=== PATIENT | male | born 1970 | race Caucasian/White ===

== ENCOUNTER 2016-12-03 01:00 | Inpatient (IN) | payer MEDICAID, OTHER ==
[~2016-12-03] VITALS: Ht 172.7 cm; Wt 76.2 kg
[2016-12-03] VITALS (10 sets, daily range): BP systolic 83–145; BP diastolic 52–76; PULSE 74–90; RESP 16–20; TEMP 97.7–99.1; O2SAT 92–98
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
[2016-12-03 01:38] LABS: AUTOMATED NEUTROPHIL # 7.9 TH/MM3 (1.8-7.7); BASOPHIL # 0.1 TH/MM3 (0-0.2); BASOPHIL % 0.8 % (0.0-2.0); EOSINOPHIL # 0.5 TH/MM3 (0-0.4); EOSINOPHIL % 4.5 % (0.0-4.0); HEMATOCRIT 46.1 % (39.0-51.0); HEMO FLAGS DIFF FINAL; LYMPH % 9.9 % (9.0-44.0); MEAN CELL VOLUME 99.8 FL (80.0-100.0); MEAN CORPUSCULAR HEMOGLOBIN 34.4 PG (27.0-34.0); MEAN CORPUSCULAR HGB CONC 34.5 % (32.0-36.0); MONO % 10.4 % (0.0-8.0); NEUT % 74.4 % (16.0-70.0); PLATELET COUNT 242 TH/MM3 (150-450); RED BLOOD COUNT 4.62 MIL/MM3 (4.50-5.90); WHITE BLOOD COUNT 10.6 TH/MM3 (4.0-11.0)
[2016-12-03 01:53] LABS: BICARBONATE 25.3 MEQ/L (21.0-32.0); POTASSIUM 3.3 MEQ/L (3.5-5.1)
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
[2016-12-03] MEDS ORDERED: NALOXONE HCL 0.4 MG/ML AMP IV PRN (03:00)
[2016-12-03] MEDS: HYDROmorphone HCL PF 1 MG/ML VIAL IV PUSH PRN ×2 (03:10→08:12)
[2016-12-03 05:38] LABS: BLOOD, URINE NEG (NEG); COMMENT (UR) CULT NOT INDICATED; CULTURE IF INDICATED CULT NOT INDICATED; GLUCOSE,URINE NEG (NEG); HYALINE CAST, URINE 1 /lpf (RARE); KETONE, URINE NEG (NEG); MUCUS URINE FEW /lpf (OCC); NITRITE,URINE NEG (NEG); PH, URINE 5.5 (5.0-8.5); URINE COLOR LIGHT-YELLOW (YELLW/STRAW)
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
[2016-12-03] MEDS: SODIUM CHLORIDE 0.9% FLUSH 10 ML FLUSH IV FLUSH SCH ×2 (09:16→21:54)
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
[2016-12-03] MEDS ORDERED: ACETAMINOPHEN/HYDROcodone 325 MG/7.5 MG TAB PO PRN (11:15)
[2016-12-03] MEDS ORDERED: LORazepam 2 MG/ML VIAL IV PUSH PRN ×4 (11:15)
[2016-12-03] MEDS ORDERED: THIAMINE HCL 100 MG TAB PO ONE (11:15)
[2016-12-03] MEDS ORDERED: LORazepam 2 MG TAB PO PRN (11:15)
[2016-12-03] MEDS ORDERED: LORazepam 1 MG TAB PO PRN (11:15)
[2016-12-03] MEDS ORDERED: FLUMAZENIL 0.5 MG/5 ML VIAL IV PUSH PRN (11:15)
[2016-12-03] MEDS ORDERED: DOCUSATE SODIUM 50 MG/SENNA 8.6 MG TAB PO PRN (11:15)
[2016-12-03] MEDS ORDERED: MAGNESIUM HYDROXIDE SUSP 30 ML CUP PO PRN (11:15)
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
[2016-12-03] MEDS: FOLIC ACID 1 MG TAB PO SCH (11:29)
[2016-12-03] MEDS: MULTIVITAMIN TAB PO SCH (11:29)
[2016-12-03] MEDS ORDERED: cloNIDine HCL 0.1 MG TAB PO PRN (11:30)
[2016-12-03] MEDS ORDERED: POTASSIUM CHLORIDE 20 MEQ CONTROLLED RELEASE TAB PO ONE (11:30)
[2016-12-03] MEDS: ACETAMINOPHEN/HYDROcodone 325 MG/10 MG TAB PO PRN ×2 (11:34→17:39)
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
[2016-12-03] MEDS: NICOTINE 21 MG/24 HR PATCH T-DERMAL SCH (12:57)
[2016-12-03] MEDS: KETOROLAC TROMETHAMINE 60 MG/2 ML (IM) VIAL IM SCH ×2 (12:58→17:41)
[2016-12-03] MEDS: REMOVE OLD PATCH T-DERMAL SCH (21:54)
[2016-12-04] VITALS (7 sets, daily range): BP systolic 100–138; BP diastolic 61–84; PULSE 75–108; RESP 16–18; TEMP 96.5–99.1; O2SAT 91–97
[2016-12-04] MEDS: ACETAMINOPHEN/HYDROcodone 325 MG/10 MG TAB PO PRN ×5 (01:02→22:49)
[2016-12-04] MEDS: KETOROLAC TROMETHAMINE 60 MG/2 ML (IM) VIAL IM SCH (01:03)
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
[2016-12-04] MEDS ORDERED: METOPROLOL TARTRATE 25 MG TAB PO PRN (07:00)
[2016-12-04] MEDS ORDERED: LACTATED RINGER'S 1000 ML IV PRN (07:00)
[2016-12-04] MEDS ORDERED: SODIUM CHLORID 0.9% 500 ML IV PRN (07:00)
[2016-12-04] MEDS ORDERED: POVIDONE IODINE 5% (ANTISEPSIS KIT) 4 APPLICATIONS EACH NARE PRN (07:00)
[2016-12-04] MEDS ORDERED: INSULIN HUMAN REGULAR 1,000 UNITS/10 ML VIAL SQ PRN (07:00)
[2016-12-04] MEDS ORDERED: CHLORHEXIDINE GLUCONATE 2 % 1 PACK (2 CLOTHS) TOPICAL PRN (07:00)
[2016-12-04] MEDS ORDERED: ceFAZolin 2 GM PREMIX 0 ML ONE (07:37)
[2016-12-04] MEDS ORDERED: VANCOMYCIN HCL 1000 MG VIAL ONE (07:37)
[2016-12-04] MEDS ORDERED: GENTAMICIN SULFATE 80 MG/2 ML VIAL ONE (07:37)
[2016-12-04] MEDS ORDERED: RESP: ALBUTEROL 2.5 MG/3 ML NEB (PRN) ONE (07:52)
[2016-12-04] MEDS: POLYETHYLENE GLYCOL 17 GM PKG PO SCH (09:00)
[2016-12-04] MEDS: MULTIVITAMIN TAB PO SCH (09:00)
[2016-12-04] MEDS: FOLIC ACID 1 MG TAB PO SCH (09:00)
[2016-12-04] MEDS: THIAMINE HCL 100 MG TAB PO SCH (09:00)
[2016-12-04] MEDS: SODIUM CHLORIDE 0.9% FLUSH 10 ML FLUSH IV FLUSH SCH ×2 (09:00→21:01)
[2016-12-04] MEDS: NICOTINE 21 MG/24 HR PATCH T-DERMAL SCH (09:00)
[2016-12-04] MEDS ORDERED: ceFAZolin INJ 1,000 MG VIAL ONE (09:08)
[2016-12-04] MEDS ORDERED: Post-op Orders (for Pharmacy) MISC XX ONE (11:45)
[2016-12-04] MEDS ORDERED: MISCELLANEOUS NURSING INFORMATION XX PRN (11:45)
[2016-12-04] MEDS ORDERED: SODIUM CHLORIDE 0.9% FLUSH 5 ML FLUSH IVF PRN (11:45)
--- NOTE | 2016-12-04 11:50 | PD.OP ---
cc: Jae Jade MD Operative Report Date of Surgery: Dec 04, 2016 Preoperative Diagnosis: Comminuted right bicondylar tibial plateau fracture Postoperative Diagnosis: Procedure: Open reduction internal fixation comminuted bicondylar tibial plateau fracture Anesthesia: Gen. Surgeon: Jae Jade Dietetic Tech(s): SAVAGE Banda PA-C The surgical procedure was assisted by my physician assistant case manager. My P.A. presence was necessary throughout this case for the manipulation and positioning of the surgical extremity. My P.A. was assisting me throughout the duration of this procedure. The skill set of a physician assistant case manager was medically necessary to complete this procedure. During the surgical case the surgical dental assistant was working at the back table and the physician assistant case manager was directly assisting me. Operation and Findings: This patient was seen and evaluated preoperatively. Patient sustained an injury resulting a bicondylar right tibial plateau fracture. Informed consent was obtained preoperatively after detailed discussion of the risks and benefits of surgery. Risk of surgery including bleeding, infection, nonunion, painful hardware, stiffness, loss of motion, arthritis, need for knee replacement, as well as medical complications including blood clots, stroke, heart attack, and were discussed. I also discussed the possibility of using allograft bone graft . Preoperatively the operative site was marked. Patient was brought to the operating room and placed on the operating room table. Intravenous sedation and general endotracheal anesthesia were administered. IV antibiotics were given and a time out procedure was preformed. Next,the operative leg was prepped with alcohol followed by Hibiclens and draped in the usual sterile fashion. Attention was now turned towards the medial tibial plateau. A 6 inch incision was made over the posterior medial aspect of the tibial plateau. Saphenous vein was protected. The PES insertion was elevated to expose the posterior medial tibial plateau. Fracture was visualized. Attention was now turned toward reduction. Traction was applied. Fracture was manipulated. Fracture keyed in excellent alignment. A fracture tenaculum was used to compress fracture. K wires were used for provisional fixation. Fluoroscopy confirmed excellent alignment of fracture. Two 3.5 cortical lag screws were placed from anterior to posterior. Good compression was obtained. A Synthes plate was now placed along the posterior medial tibial plateau. Plate was provisionally held to bone with K wires. Fluoroscopy confirmed plate placement. 3.5 cortical screws were used to compress plate to bone. Additional locking screws were placed proximally. Next a 4-inch curvilinear incision over the anterolateral knee. Subcutaneous tissue was treated with Bovie. Iliotibial band was split in line with fibers. A sub-meniscal arthrotomy was created and the lateral articular surface was visualized. There was significant comminution and depression of the articular surface. A window was made in the metaphyseal region and bone tamps used to elevate the articular surface. The weightbearing aspect of the Articular surface reduced into excellent alignment. There was a fragment defect along the intercondylar notch that would not reduce anatomically. K-wires were used for provisional fixation. At this point cancellous bone graft was packed under the articular surface using a bone tamp. The cortical fragments were now reduced. Fluoroscopy revealed excellent alignment of fracture. A Synthes proximal tibial plate was selected. The plate was provisionally held with K- wires. 3.5 cortical screws were used compress plate to bone distally, and a periarticular clamp was used to compress the medial and lateral tibial plateau fracture fragments together. Multiple locking screws were now placed proximally. Additional screws were placed in the shaft. K-wires were removed. Final fluoroscopy showed excellent alignment of fracture with well- placed hardware. The incision was thoroughly irrigated. Attention was now returned back to the medial plate. Additional locking screws were placed proximally within the plate. All screws were predrilled and premeasured for appropriate length. Incisions were thoroughly irrigated. Attention was now turned to closure. Fascia and iliotibial band were closed with #1 Vicryl,. Subcutaneous tissues closed with 3-0 Vicryl and skin was closed with verónica. Sterile dressings were applied. The patient was transferred to recovery in stable condition. Jae Jade MD Dec 04, 2016 11:50
[2016-12-04] MEDS ORDERED: DO NOT ADM ANY ANTICOAGULANT DRUGS PRN (12:14)
[2016-12-04] MEDS ORDERED: *morphine SULFATE 8 MG/ML PERIprocedure ONLY ONE ×2 (12:21→12:38)
[2016-12-04] MEDS ORDERED: *MEPERIDINE 25 MG INJ VIAL PERIprocedural Use ONLY ONE (12:25)
[2016-12-04] MEDS: LACTATED RINGER'S 1000 ML INJ 1,000 ML IV SCH (12:50)
[2016-12-04] MEDS ORDERED: MIDAZOLAM HCL 2 MG/2 ML VIAL IV ONE (12:53)
[2016-12-04] MEDS ORDERED: LACTATED RINGER'S 1000 ML INJ 1,000 ML IV ONE (12:53)
[2016-12-04] MEDS ORDERED: PHENYLEPH/NS 1000 MCG/10 ML SYR IV ONE (12:53)
[2016-12-04] MEDS ORDERED: PROPOFOL 200 MG/20 ML AMP IV ONE (12:53)
[2016-12-04] MEDS: CALCIUM/VITAMIN D 250 MG/125 U TAB PO SCH ×2 (13:00→19:11)
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
[2016-12-04] MEDS ORDERED: diphenhydrAMINE HCL 25 MG CAP PO PRN (14:00)
[2016-12-04] MEDS ORDERED: ERGOCALCIFEROL (VIT D2) 50,000 UNIT CAP PO SCH (14:00)
[2016-12-04] MEDS ORDERED: ONDANSETRON HCL 4 MG/2 ML VIAL IVP PRN (14:00)
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
[2016-12-04 16:35] LABS: BASOPHIL % 0.4 % (0.0-2.0); EOSINOPHIL # 0.2 TH/MM3 (0-0.4); EOSINOPHIL % 2.9 % (0.0-4.0); HEMATOCRIT 39.6 % (39.0-51.0); HEMO FLAGS DIFF FINAL; LYMPH % 8.4 % (9.0-44.0); LYMPHOCYTE # 0.7 TH/MM3 (1.0-4.8); MEAN CELL VOLUME 99.3 FL (80.0-100.0); MEAN CORPUSCULAR HEMOGLOBIN 33.7 PG (27.0-34.0); MEAN CORPUSCULAR HGB CONC 33.9 % (32.0-36.0); MONO % 11.7 % (0.0-8.0); NEUT % 76.6 % (16.0-70.0); PLATELET COUNT 248 TH/MM3 (150-450); RED BLOOD COUNT 3.99 MIL/MM3 (4.50-5.90); RED CELL DISTRIBUTION WIDTH 14.2 % (11.6-17.2); WHITE BLOOD COUNT 7.8 TH/MM3 (4.0-11.0)
[2016-12-04 16:50] LABS: BICARBONATE 28.6 MEQ/L (21.0-32.0); POTASSIUM 4.2 MEQ/L (3.5-5.1)
[2016-12-04] MEDS: ceFAZolin 2 GM PREMIX 50 ML IV SCH (19:11)
[2016-12-04] MEDS: HYDROmorphone HCL PF 1 MG/ML VIAL IV PUSH PRN (21:00)
[2016-12-04] MEDS: SODIUM CHLORIDE 0.9% FLUSH 5 ML FLUSH IVF SCH (21:01)
[2016-12-04] MEDS: VANCOMYCIN INJ 1,000 MG in SODIUM CHLOR 0.9% 250 ML INJ 250 ML IV SCH (21:01)
[2016-12-04] MEDS: REMOVE OLD PATCH T-DERMAL SCH (21:01)
[2016-12-05] VITALS (7 sets, daily range): BP systolic 118–157; BP diastolic 67–81; PULSE 87–92; RESP 18; TEMP 99.2–100.4; O2SAT 92–93
[2016-12-05] MEDS: HYDROmorphone HCL PF 1 MG/ML VIAL IV PUSH PRN ×5 (01:17→23:20)
[2016-12-05] MEDS: ceFAZolin 2 GM PREMIX 50 ML IV SCH ×3 (01:17→17:56)
[2016-12-05] MEDS: LACTATED RINGER'S 1000 ML INJ 1,000 ML IV SCH ×2 (02:30→15:00)
[2016-12-05] MEDS: ACETAMINOPHEN/HYDROcodone 325 MG/10 MG TAB PO PRN ×6 (03:07→21:45)
--- NOTE | 2016-12-05 06:43 | PD.ORT.PN ---
Subjective Subjective Remarks POD 1 s/p ORIF right tibial plateau doing well. reports pain. otherwise stable Objective Vitals Vital Signs Date Time Temp Pulse Resp B/P (MAP) Pulse Ox O2 Delivery O2 Flow Rate FiO2 12/05/16 03:29 99.2 89 18 138/81 (100) 92 12/04/16 23:18 98.8 79 18 124/79 (94) 94 12/04/16 21:08 93 Nasal Cannula 3.00 12/04/16 19:46 98.7 84 18 114/79 (91) 97 12/04/16 18:40 Nasal Cannula 3.00 12/04/16 15:35 96.5 108 17 138/84 (102) 93 12/04/16 12:26 15 12/04/16 12:15 97.8 84 16 119/72 (88) 94 Nasal Cannula 3 12/04/16 07:58 97.6 79 16 108/67 (81) 91 I/O 12/04/16 12/04/16 12/04/16 12/05/16 12/05/16 12/05/16 07:00 15:00 23:00 07:00 15:00 23:00 Intake Total 240 ml 2300 ml 360 ml 360 ml Output Total 250 ml 100 ml 550 ml Balance -10 ml 2200 ml 360 ml -190 ml Intake Oral 240 ml 300 ml 360 ml 360 ml Other 2000 ml Output Urine Total 250 ml 550 ml Estimated Blood Loss 100 ml # Voids 2 # Bowel Movements 0 0 0 Result Diagram: 12/04/16 1545 12/04/16 1545 Imaging Last 24 hours Impressions Knee X-Ray 12/03/16111 Signed Impressions: Service Date/Time: Saturday, December 03, 2016 01:30 - CONCLUSION: 1. Mildly comminuted tibial plateau fracture with mild displacement. Ralph Mendez MD Head CT 12/03/16111 Signed Impressions: Service Date/Time: Saturday, December 03, 2016 01:40 - CONCLUSION: 1. No acute intracranial abnormalities. Mucosal thickening left maxillary sinus. Left frontal sinus osteoma. Ralph Mendez MD Femur X-Ray 12/03/16111 Signed Impressions: Service Date/Time: Saturday, December 03, 2016 01:28 - CONCLUSION: 1. No acute fracture dislocation of the right femur. There is a right tibial plateau fracture which is mildly comminuted. Ralph Mendez MD Chest X-Ray 12/03/16111 Signed Impressions: Service Date/Time: Saturday, December 03, 2016 01:33 - CONCLUSION: 1. No active disease. Remote right ninth rib fracture. Ralph Mendez MD Cervical Spine CT 12/03/16111 Signed Impressions: Service Date/Time: Saturday, December 03, 2016 01:40 - CONCLUSION: 1. No acute findings. Llsm-rs-xwcuerzh degenerative disc disease. Ralph Mendez MD Pelvis X-Ray 12/03/16 0000 Signed Impressions: Service Date/Time: Saturday, December 03, 2016 01:27 - CONCLUSION: 1. No acute findings. Ralph Mendez MD Lower Extremity CT 12/03/16 Signed Impressions: Service Date/Time: Saturday, December 03, 2016 06:29 - CONCLUSION: Severely comminuted plateau fracture as described above. Fracture begins in the posterior lip of the tibia extends only across to the lateral side involving both the medial and lateral tibial spines. Dionte Sutton MD FACR Objective Remarks RLE: +CKS. NVI. neg hayley, compartments soft. dressings clean and dry. intact. Assessment & Plan Assessment and Plan 1) Right Tibial Plateau Fx s/p ORIF - POD 1 -NWB -daily dressing changes POD 2 -PT to work on PROM 0-90 -no quad sets, leg lifts, or active motion -DVT prophylaxis with Lovenox. DC with xarelto -Pain control -work for discharge home -f/u with Jose or JULIA in 2 weeks Isaac Pablo Dec 05, 2016 06:43
[2016-12-05] MEDS ORDERED: WALKER/ADULT/FO1 MIS (06:44)
[2016-12-05] MEDS ORDERED: HYDR-3583 PO (06:44)
[2016-12-05] MEDS ORDERED: XARE10TA PO (06:44)
--- NOTE | 2016-12-05 06:45 | HHI.FF ---
Face to Face Verification Diagnosis: (1) Tibial plateau fracture, right Physical Therapy Gait training Knee: Knee fracture, Protocol: Right, Non weight bearing Canvas Knee Splint: Remove only with PT Right LE Weight Bearing: Non WB, No Strengthening, No Quad Sets Right LE Range of Motion: Passive ROM (0-90deg) Nursing Dressing Changes: Daily dressing change, Pete wrap, 4x4s, Xeroform I have seen patient Mario Oneal on 12/05/16. My clinical findings support the need for the requested home health care services because: Ltd mobility - disease progression I certify that my clinical findings support that this patient is homebound because: Post-op weakness Isaac Pablo Dec 05, 2016 06:45
[2016-12-05 07:05] LABS: AUTOMATED NEUTROPHIL # 5.9 TH/MM3 (1.8-7.7); BASOPHIL % 0.5 % (0.0-2.0); BICARBONATE 29.4 MEQ/L (21.0-32.0); EOSINOPHIL # 0.3 TH/MM3 (0-0.4); EOSINOPHIL % 4.1 % (0.0-4.0); HEMATOCRIT 37.4 % (39.0-51.0); HEMO FLAGS DIFF FINAL; LYMPH % 7.5 % (9.0-44.0); LYMPHOCYTE # 0.6 TH/MM3 (1.0-4.8); MEAN CELL VOLUME 98.7 FL (80.0-100.0); MEAN CORPUSCULAR HEMOGLOBIN 33.6 PG (27.0-34.0); MONO % 14.4 % (0.0-8.0); NEUT % 73.5 % (16.0-70.0); PLATELET COUNT 235 TH/MM3 (150-450); RED BLOOD COUNT 3.78 MIL/MM3 (4.50-5.90); RED CELL DISTRIBUTION WIDTH 13.8 % (11.6-17.2)
[2016-12-05] MEDS: FOLIC ACID 1 MG TAB PO SCH (08:54)
[2016-12-05] MEDS: SODIUM CHLORIDE 0.9% FLUSH 10 ML FLUSH IV FLUSH SCH (08:54)
[2016-12-05] MEDS: POLYETHYLENE GLYCOL 17 GM PKG PO SCH ×2 (08:54→08:58)
[2016-12-05] MEDS: CHOLECALCIFEROL (VIT D3) 1000 UNIT TAB PO SCH (08:54)
[2016-12-05] MEDS: THIAMINE HCL 100 MG TAB PO SCH (08:54)
[2016-12-05] MEDS: MULTIVITAMIN TAB PO SCH (08:54)
[2016-12-05] MEDS: CALCIUM/VITAMIN D 250 MG/125 U TAB PO SCH ×3 (08:54→17:56)
[2016-12-05] MEDS: NICOTINE 21 MG/24 HR PATCH T-DERMAL SCH (08:54)
[2016-12-05] MEDS: SODIUM CHLORIDE 0.9% FLUSH 5 ML FLUSH IVF SCH ×2 (08:55→21:50)
[2016-12-05] MEDS: VANCOMYCIN INJ 1,000 MG in SODIUM CHLOR 0.9% 250 ML INJ 250 ML IV SCH ×2 (09:00→21:47)
[2016-12-05] MEDS: ENOXAPARIN SODIUM 30 MG/0.3 ML SYRINGE SQ SCH ×2 (10:26→23:00)
[2016-12-05] MEDS: SODIUM CHLORIDE 0.9% FLUSH 10 ML FLUSH IV FLUSH PRN ×2 (13:04→18:55)
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
[2016-12-05] MEDS: REMOVE OLD PATCH T-DERMAL SCH (21:50)
[2016-12-06 00:12] VITALS: BP 123/63; PULSE 90; RESP 18; TEMP 99.1; O2SAT 94
[2016-12-06] MEDS: ACETAMINOPHEN/HYDROcodone 325 MG/10 MG TAB PO PRN ×3 (01:45→12:32)
[2016-12-06] MEDS: ceFAZolin 2 GM PREMIX 50 ML IV SCH ×2 (02:00→09:17)
[2016-12-06] MEDS: LACTATED RINGER'S 1000 ML INJ 1,000 ML IV SCH (03:30)
[2016-12-06] MEDS: HYDROmorphone HCL PF 1 MG/ML VIAL IV PUSH PRN ×2 (04:01→09:08)
--- NOTE | 2016-12-06 06:56 | PD.ORT.PN ---
Subjective Subjective Remarks Pain controlled no new complaints Objective Vitals Vital Signs Date Time Temp Pulse Resp B/P (MAP) Pulse Ox O2 Delivery O2 Flow Rate FiO2 12/06/16 00:12 99.1 90 18 123/63 (83) 94 12/05/16 21:58 93 12/05/16 19:44 99.8 89 18 121/70 (87) 93 12/05/16 16:00 100.4 92 18 118/67 (84) 93 12/05/16 11:46 99.2 87 18 121/75 (90) 92 12/05/16 11:14 92 21 12/05/16 08:00 99.5 87 18 157/76 (103) 92 I/O 12/05/16 12/05/16 12/05/16 12/06/16 12/06/16 12/06/16 07:00 15:00 23:00 07:00 15:00 23:00 Intake Total 360 ml 1020 ml 770 ml 480 ml Output Total 550 ml 700 ml 650 ml 600 ml Balance -190 ml 320 ml 120 ml -120 ml Intake Oral 360 ml 720 ml 720 ml 480 ml IV Total 300 ml 50 ml Output Urine Total 550 ml 700 ml 650 ml 600 ml # Voids 2 # Bowel Movements 0 1 0 0 Result Diagram: 12/05/16 0546 12/05/16 0546 Imaging Last 24 hours Impressions Knee X-Ray 12/03/16111 Signed Impressions: Service Date/Time: Saturday, December 03, 2016 01:30 - CONCLUSION: 1. Mildly comminuted tibial plateau fracture with mild displacement. Ralph Mendez MD Head CT 12/03/16111 Signed Impressions: Service Date/Time: Saturday, December 03, 2016 01:40 - CONCLUSION: 1. No acute intracranial abnormalities. Mucosal thickening left maxillary sinus. Left frontal sinus osteoma. Ralph Mendez MD Femur X-Ray 12/03/16111 Signed Impressions: Service Date/Time: Saturday, December 03, 2016 01:28 - CONCLUSION: 1. No acute fracture dislocation of the right femur. There is a right tibial plateau fracture which is mildly comminuted. Ralph Mendez MD Chest X-Ray 12/03/16111 Signed Impressions: Service Date/Time: Saturday, December 03, 2016 01:33 - CONCLUSION: 1. No active disease. Remote right ninth rib fracture. Ralph Mendez MD Cervical Spine CT 12/03/16 0112 Signed Impressions: Service Date/Time: Saturday, December 03, 2016 01:40 - CONCLUSION: 1. No acute findings. [id number] degenerative disc disease. Ralph Mendez MD Pelvis X-Ray 12/03/16 0000 Signed Impressions: Service Date/Time: Saturday, December 03, 2016 01:27 - CONCLUSION: 1. No acute findings. Ralph Mendez MD Lower Extremity CT 12/03/16 0000 Signed Impressions: Service Date/Time: Saturday, December 03, 2016 06:29 - CONCLUSION: Severely comminuted plateau fracture as described above. Fracture begins in the posterior lip of the tibia extends only across to the lateral side involving both the medial and lateral tibial spines. Dionte Sutton MD FACR Objective Remarks RLE: +CKS. NVI. neg hayley, compartments soft. dressings clean and dry. intact. Assessment & Plan Assessment and Plan 1) Right Tibial Plateau Fx s/p ORIF - POD 2 -NWB -daily dressing changes -PT to work on PROM 0-90 -no quad sets, leg lifts, or active motion -DVT prophylaxis with Lovenox. DC with xarelto -Pain control -work for discharge home - orthopedically cleared for discharge -f/u with Jose or JULIA in 2 weeks Vincent Souza Jr. Dec 06, 2016 06:56
[2016-12-06 07:34] LABS: HEMATOCRIT 35.5 % (39.0-51.0); REVIEW FLAG FINAL
[2016-12-06 08:00] VITALS: BP 125/66; PULSE 77; RESP 18; TEMP 98.6; O2SAT 94
[2016-12-06] MEDS: SODIUM CHLORIDE 0.9% FLUSH 5 ML FLUSH IVF SCH (09:00)
[2016-12-06] MEDS: THIAMINE HCL 100 MG TAB PO SCH (09:07)
[2016-12-06] MEDS: CHOLECALCIFEROL (VIT D3) 1000 UNIT TAB PO SCH (09:07)
[2016-12-06] MEDS: POLYETHYLENE GLYCOL 17 GM PKG PO SCH (09:07)
[2016-12-06] MEDS: FOLIC ACID 1 MG TAB PO SCH (09:07)
[2016-12-06] MEDS: NICOTINE 21 MG/24 HR PATCH T-DERMAL SCH (09:07)
[2016-12-06] MEDS: MULTIVITAMIN TAB PO SCH (09:07)
[2016-12-06] MEDS: CALCIUM/VITAMIN D 250 MG/125 U TAB PO SCH ×2 (09:09→12:31)
[2016-12-06] MEDS: SODIUM CHLORIDE 0.9% FLUSH 10 ML FLUSH IV FLUSH SCH (09:12)
[2016-12-06 09:42] VITALS: O2SAT 96
[2016-12-06 12:00] VITALS: BP 112/69; PULSE 85; RESP 18; TEMP 99.6; O2SAT 96
[2016-12-06] MEDS: ENOXAPARIN SODIUM 30 MG/0.3 ML SYRINGE SQ SCH (12:32)
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
== END 2016-12-06 14:09 | disposition home or self-care (01) | DRG 494 ==
LOC: NEPC 01:00 → NEDA 02:47 → NEDH 06:50 → N03A 12:23 → N06A 19:12
PROVIDERS: ADMIT Hospitalist; ATTEND Hospitalist
PROC: 0QSG04Z Reposition Right Tibia with Internal Fixation Device, Open Approach (ICD-10-PCS; principal; 2016-12-04 09:33)
DX: S82.141A Displaced bicondylar fracture of right tibia, initial encounter for closed fracture (principal); E87.6 Hypokalemia; F41.9 Anxiety disorder, unspecified; F17.210 Nicotine dependence, cigarettes, uncomplicated; G25.81 Restless legs syndrome; V89.2XXA Person injured in unspecified motor-vehicle accident, traffic, initial encounter; Y92.410 Unspecified street and highway as the place of occurrence of the external cause; S50.311A Abrasion of right elbow, initial encounter; F12.90 Cannabis use, unspecified, uncomplicated; M25.511 Pain in right shoulder; F10.129 Alcohol abuse with intoxication, unspecified; Y90.6 Blood alcohol level of 120-199 mg/100 ml
CPT/HCPCS: 70450; 71010; 72125; 72170; 73030; 73552; 73560; 73564; 73700; 76000; 80048; 80307; 81001; 82652; 85014; 85018; 85025; 94150; 94664; C1713; J0690; J1170; J1580; J1650; J1885; J2175; J2250; J2270; J2370; J3010; J3370; J7050; J7120; J7613; L1830

== ENCOUNTER 2016-12-06 16:53 | Emergency (ER) | payer OTHER ==
[~2016-12-06] VITALS: Ht 172.7 cm; Wt 70.0 kg
[~2016-12-06 16:53] MED LIST: HYDR-3583 PO; WALKER/ADULT/FO1 MIS; XARE10TA PO
[2016-12-06 16:54] VITALS: BP 116/70; PULSE 107; RESP 20; TEMP 98.7; O2SAT 98
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
[2016-12-06] MEDS ORDERED: oxyCODONE/ACETAMINOPHEN 5 MG/325 MG TAB PO ONE (19:00)
== END 2016-12-06 19:23 | disposition home or self-care (01) ==
LOC: NEPD 16:53
DX: Z03.89 Encounter for observation for other suspected diseases and conditions ruled out (principal); J45.909 Unspecified asthma, uncomplicated
CPT/HCPCS: 94150; 99283

== ENCOUNTER 2017-02-08 17:18 | Inpatient (IN) | payer MEDICAID ==
[~2017-02-08] VITALS: Ht 170.2 cm; Wt 78.2 kg
[~2017-02-08 17:18] MED LIST changes: -WALKER/ADULT/FO1 MIS
[2017-02-08] MEDS ORDERED: LACTULOSE SYRUP 20 GM/30 ML CUP PO PRN ×2 (21:00→22:15)
[2017-02-08] MEDS ORDERED: DOCUSATE SODIUM 50 MG/SENNA 8.6 MG TAB PO SCH (21:00)
[2017-02-08] MEDS ORDERED: NALOXONE HCL 0.4 MG/ML AMP IV PUSH PRN (21:00)
[2017-02-08] MEDS ORDERED: BISACODYL 10 MG SUPP RECTAL PRN ×2 (21:00→22:15)
[2017-02-08] MEDS ORDERED: SODIUM CHLORIDE 0.9% FLUSH 10 ML FLUSH IV FLUSH SCH (21:00)
[2017-02-08] MEDS ORDERED: MAGNESIUM HYDROXIDE SUSP 30 ML CUP PO PRN ×2 (21:00→22:15)
[2017-02-08] MEDS ORDERED: ONDANSETRON HCL 4 MG/2 ML VIAL IVP PRN ×2 (21:00→22:15)
[2017-02-08] MEDS ORDERED: ACETAMINOPHEN 325 MG TAB PO PRN ×2 (21:00→22:15)
[2017-02-08] MEDS ORDERED: SODIUM CHLORIDE 0.9% FLUSH 10 ML FLUSH IV FLUSH PRN ×2 (21:00→22:15)
[2017-02-08] MEDS ORDERED: MORPHINE SULFATE 2 MG/ML INJ IM PRN (21:00)
[2017-02-08] MEDS ORDERED: SENNOSIDES 8.6 MG TAB PO PRN ×2 (21:00→22:15)
[2017-02-08] MEDS ORDERED: SODIUM CHLOR 0.9% 1000 ML INJ 1,000 ML IV SCH (22:00)
[2017-02-08 22:20] VITALS: BP 111/66; PULSE 90; RESP 17; TEMP 98.7; O2SAT 93
[2017-02-08] MEDS: SODIUM CHLOR 0.9% 1000 ML INJ 1,000 ML IV SCH (22:49)
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
[2017-02-09] VITALS (8 sets, daily range): BP systolic 99–116; BP diastolic 57–68; PULSE 71–94; RESP 16–21; TEMP 97.2–100.7; O2SAT 90–95
[2017-02-09] MEDS ORDERED: RESP: ALBUTEROL 2.5 MG/IPRATROPIUM 0.5 MG NEB (SCH) NEB ONE
[2017-02-09] MEDS ORDERED: RESP: ALBUTEROL 2.5 MG/IPRATROPIUM 0.5 MG NEB (PRN) NEB
[2017-02-09] MEDS ORDERED: Vancomycin Consult Pharmacy 1 EA OTHER SCH
[2017-02-09] MEDS ORDERED: NICOTINE 14 MG/24 HR PATCH T-DERMAL SCH
[2017-02-09] MEDS ORDERED: oxyCODONE/ACETAMINOPHEN 10 MG/325 MG TAB PO ONE
[2017-02-09] MEDS ORDERED: MORPHINE SULFATE 4 MG/ML INJ IV PUSH PRN (00:30)
[2017-02-09] MEDS ORDERED: VANCOMYCIN INJ 1,250 MG in SODIUM CHLOR 0.9% 250 ML INJ 250 ML IV ONE (02:00)
[2017-02-09] MEDS ORDERED: MORPHINE SULFATE 2 MG/ML INJ IM PRN (03:00)
[2017-02-09] MEDS: PIPERACIL-TAZO 3.375 GM PREMIX 50 ML IV SCH ×3 (05:08→11:17)
[2017-02-09 06:47] LABS: AUTOMATED NEUTROPHIL # 7.5 TH/MM3 (1.8-7.7); BASOPHIL % 0.2 % (0.0-2.0); EOSINOPHIL # 0.1 TH/MM3 (0-0.4); EOSINOPHIL % 0.6 % (0.0-4.0); HEMATOCRIT 32.2 % (39.0-51.0); HEMO FLAGS DIFF FINAL; LYMPH % 5.3 % (9.0-44.0); LYMPHOCYTE # 0.5 TH/MM3 (1.0-4.8); MEAN CELL VOLUME 96.1 FL (80.0-100.0); MEAN CORPUSCULAR HEMOGLOBIN 33.2 PG (27.0-34.0); MEAN CORPUSCULAR HGB CONC 34.6 % (32.0-36.0); MONO % 12.1 % (0.0-8.0); NEUT % 81.8 % (16.0-70.0); PLATELET COUNT 199 TH/MM3 (150-450); RED BLOOD COUNT 3.35 MIL/MM3 (4.50-5.90); RED CELL DISTRIBUTION WIDTH 14.1 % (11.6-17.2); WHITE BLOOD COUNT 9.1 TH/MM3 (4.0-11.0)
--- NOTE | 2017-02-09 07:02 | PD.ORT.PN ---
Subjective Subjective Remarks Prior surgery to bicondylar tibial plateau fracture on 12/04/[address] Garcia. Over the past week he has noticed increased swelling and drainage coming out of his medial incision. Went to [facility] in the [facility] to have it assessed and was transferred here due to infected knee. No other associated complaints Objective Vitals Vital Signs Date Time Temp Pulse Resp B/P (MAP) Pulse Ox O2 Delivery O2 Flow Rate FiO2 02/09/17 04:00 98.0 71 17 111/68 (82) 95 02/09/17 00:00 98.0 76 17 108/62 (77) 95 02/08/17 22:20 98.7 90 17 111/66 (81) 93 I/O 02/08/17 02/08/17 02/08/17 02/09/17 02/09/17 02/09/17 07:00 15:00 23:00 07:00 15:00 23:00 Intake Total 350 ml Output Total 250 ml Balance 100 ml Intake Oral 0 ml IV Total 350 ml Output Urine Total 250 ml # Voids 1 # Bowel Movements 1 Result Diagram: 02/09/17 0522 Imaging Imaging is reviewed from [facility] in the [facility]. Shows well aligned bicondylar tibial plateau fracture with hardware intact Objective Remarks Right lower extremity: No pain with hip range of motion. Significant swelling, warmth, mild erythema but liilam drainage of fluid from the medial inferior part of the incision. He has swelling of +2 to the foot. The foot is warm. Intact sensation distally with active dorsiflexion plantar flexion of foot Assessment & Plan Assessment and Plan Right bicondylar tibial plateau fracture Postsurgical infection to right knee Nothing by mouth Sign consents for irrigation debridement of right knee with possible antibiotic bead placement and or wound VAC application surgery this morning with Vincent Cordova Jr. Feb 09, 2017 07:02
[2017-02-09] MEDS ORDERED: GENTAMICIN SULFATE 80 MG/2 ML VIAL ONE (07:22)
[2017-02-09] MEDS ORDERED: VANCOMYCIN HCL 1000 MG VIAL ONE ×2 (07:22→09:07)
[2017-02-09 07:26] LABS: BICARBONATE 21.7 MEQ/L (21.0-32.0); POTASSIUM 3.5 MEQ/L (3.5-5.1); TOTAL BILIRUBIN ADULT 0.5 MG/DL (0.2-1.0)
[2017-02-09 07:31] LABS: CALCIUM-PROTEIN CORRECTED 7.4 MG/DL (8.5-10.1)
[2017-02-09] MEDS: SODIUM CHLOR 0.9% 1000 ML INJ 1,000 ML IV SCH ×2 (08:06→15:12)
[2017-02-09] MEDS ORDERED: CALCIUM GLUCONATE INJ 1 GM in SODIUM CHLORIDE 0.9% INJ 90 ML IV ONE (08:30)
[2017-02-09] MEDS ORDERED: ACETAMINOPHEN 1000 MG/100 ML 100 ML IV ONE (08:38)
[2017-02-09] MEDS ORDERED: TOBRAMYCIN 1200 MG VIAL (ortho-sterile core) OTHER ONE (08:45)
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
[2017-02-09] MEDS: LACTATED RINGER'S 1000 ML INJ 1,000 ML IV SCH ×2 (09:20→18:28)
--- NOTE | 2017-02-09 09:30 | PD.OP ---
cc: Jae Jade MD Operative Report Date of Surgery: Feb 09, 2017 Preoperative Diagnosis: Right proximal tibia infection, possible septic arthritis right knee Postoperative Diagnosis: Procedure: Irrigation and debridement of right proximal tibia, right knee arthrotomy with irrigation and debridement of infection, application wound VAC dressing Surgeon: Jae Jade Housekeeper/Laundry Assistant(s): Rudy Souza PA-C The surgical procedure was assisted by my physician gift shop assistant. My P.A. presence was necessary throughout this case for the manipulation and positioning of the surgical extremity. My P.A. was assisting me throughout the duration of this procedure. The skill set of a physician gift shop assistant was medically necessary to complete this procedure. During the surgical case the surgical scheduler was working at the back table and the physician gift shop assistant was directly assisting me. Operation and Findings: .Patient was seen and evaluated preoperatively. Patient was found to have infection of the right proximal tibia and knee. Knee effusion and erythema were noted. There was purulent drainage from her medial wound. Informed consent was obtained after detailed discussion of risk and benefits of surgery. Operative site was marked. Patient was brought to the operating room. IV sedation and GETA were administered by anesthesiologist. Operative leg was prepped with alcohol followed by Hibiclens and draped in usual sterile fashion. Timeout procedure was performed. Procedure began with a opening of the medial incision. The medial incision was extended proximally and distally. There was purulent drainage noted. This was obtained for culture. Full thickness flap was elevated. The infection didn't appear to extend down to the hardware. Curettes and rongeurs were used to thoroughly debride the wound. Excisional debridement was performed. Tissue culture was obtained. After thorough debridement of the wound, the wound was thoroughly irrigated with pulsatile lavage. Next attention was turned towards the lateral knee and tibia. A 4 inch incision was made over the lateral knee. Subcutaneous tissue dissected with Bovie. Iliotibial band was opened in line with fibers. There was a large amount of purulent drainage present. Fluid and tissue cultures were obtained from the proximal lateral tibia. Curettes and rongeurs were used to thoroughly debride soft tissue and bone along the proximal tibia. Hardware and bone were thoroughly irrigated with pulsatile lavage. At this point the wound appeared to be clean. Next attention was turned to the right knee. The lateral incision was extended proximally. The joint was now opened through arthrotomy. A large volume of purulent fluid was found within the knee. Specimen was obtained for cultures and sensitivities. The knee joint was manipulated. The knee joint was palpated and loculations were manually debrided. A portion of the synovium was excised. After excisional debridement was complete, the wound was thoroughly irrigated with sterile saline. At this point the wound was clean. At this point attention was turned to VAC dressings. VAC dressing varaflow dressings were utilized. VAC dressings were placed into the medial and lateral wounds. VAC dressings were sealed appropriately. A 3 L saline bag with 4 g of vancomycin was attached to the VAC dressing . Sterile dressings were applied. Patient was awakened and transferred to recovery in stable condition. Needle and sponge counts were correct Jae Jade MD Feb 09, 2017 09:30
[2017-02-09] MEDS: SODIUM CHLORIDE 0.9% FLUSH 10 ML FLUSH IV FLUSH SCH ×2 (09:56→20:46)
[2017-02-09] MEDS ORDERED: *morphine SULFATE 8 MG/ML PERIprocedure ONLY ONE (10:00)
[2017-02-09] MEDS ORDERED: DO NOT ADM ANY ANTICOAGULANT DRUGS PRN (10:00)
[2017-02-09] MEDS: ACETAMINOPHEN/HYDROcodone 325 MG/10 MG TAB PO PRN ×3 (11:04→23:45)
[2017-02-09] MEDS: CALCIUM CARBONATE 1.25 GM (CA 500 MG) TAB PO SCH ×2 (11:04→20:46)
[2017-02-09] MEDS: DOCUSATE SODIUM 50 MG/SENNA 8.6 MG TAB PO SCH ×2 (11:05→20:46)
[2017-02-09] MEDS ORDERED: PROPOFOL 200 MG/20 ML AMP IV ONE ×2 (12:00)
[2017-02-09] MEDS ORDERED: LIDOCAINE HCL 1% PF 5 ML SYRINGE OTHER ONE ×2 (12:00)
[2017-02-09] MEDS ORDERED: ONDANSETRON HCL 4 MG/2 ML VIAL IV PUSH ONE ×2 (12:00)
[2017-02-09] MEDS ORDERED: MORPHINE SULFATE 4 MG/ML INJ IV ONE ×2 (12:00)
[2017-02-09] MEDS ORDERED: MIDAZOLAM HCL 2 MG/2 ML VIAL IV ONE ×2 (12:00)
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
[2017-02-09] MEDS: cefTRIAXone INJ 2,000 MG in SODIUM CHLORIDE 0.9% INJ 100 ML IV SCH (15:00)
[2017-02-09] MEDS: VANCOMYCIN INJ 1,250 MG in SODIUM CHLOR 0.9% 250 ML INJ 250 ML IV SCH (17:42)
[2017-02-09] MEDS ORDERED: REMOVE OLD PATCH T-DERMAL SCH (21:00)
[2017-02-10] VITALS (9 sets, daily range): BP systolic 98–108; BP diastolic 57–63; PULSE 72–90; RESP 17–20; TEMP 97.4–99; O2SAT 92–93
[2017-02-10] MEDS: SODIUM CHLOR 0.9% 1000 ML INJ 1,000 ML IV SCH ×3 (04:06→23:39)
[2017-02-10] MEDS: LACTATED RINGER'S 1000 ML INJ 1,000 ML IV SCH ×2 (05:14→15:20)
[2017-02-10] MEDS: VANCOMYCIN INJ 1,250 MG in SODIUM CHLOR 0.9% 250 ML INJ 250 ML IV SCH ×2 (05:22→17:40)
[2017-02-10] MEDS: ACETAMINOPHEN/HYDROcodone 325 MG/10 MG TAB PO PRN (06:14)
--- NOTE | 2017-02-10 06:51 | PD.ORT.PN ---
Subjective Subjective Remarks POD 1 s/p I&D with veraflo vac application right knee s/p ORIF right tibial plateau doing well. reports swelling and pain. states request switch off of norco/ morphine and to percocet Objective Vitals Vital Signs Date Time Temp Pulse Resp B/P (MAP) Pulse Ox O2 Delivery O2 Flow Rate FiO2 02/10/17 04:00 97.4 72 17 107/62 (77) 93 02/10/17 00:00 98.1 76 19 108/60 (76) 93 02/09/17 20:00 99.3 81 19 113/58 (76) 92 02/09/17 16:00 98.4 86 21 108/57 (74) 90 02/09/17 12:00 97.2 93 20 116/66 (83) 92 02/09/17 11:05 94 02/09/17 10:45 94 16 115/67 (83) 94 Nasal Cannula 2 02/09/17 10:30 92 16 114/61 (78) 94 Nasal Cannula 2 02/09/17 10:15 98 16 124/67 (86) 93 Nasal Cannula 2 02/09/17 10:00 96 16 140/76 (97) 94 Nasal Cannula 2 02/09/17 09:56 98.2 98 16 138/75 (96) 92 Nasal Cannula 2 02/09/17 08:30 93 Nasal Cannula 2.50 02/09/17 08:00 100.7 94 16 99/58 (72) 90 I/O 02/09/17 02/09/17 02/09/17 02/10/17 02/10/17 02/10/17 07:00 15:00 23:00 07:00 15:00 23:00 Intake Total 350 ml 1120 ml 1229 ml 240 ml Output Total 250 ml 100 ml 300 ml Balance 100 ml 1020 ml 1229 ml -60 ml Intake Oral 0 ml 480 ml 240 ml IV Total 350 ml 820 ml 749 ml Other 300 ml Output Urine Total 250 ml 300 ml Estimated Blood Loss 100 ml # Voids 1 # Bowel Movements 1 Result Diagram: 02/09/1752102/09/17521 Imaging Imaging is reviewed from [facility] in [place]. Shows well aligned bicondylar tibial plateau fracture with hardware intact Objective Remarks Right lower extremity: +swelling and erythema of lower leg. +vac x 2 with good seal. nvi. +knee brace Assessment & Plan Assessment and Plan 1) Right bicondylar tibial plateau fracture 2) Postsurgical infection to right knee s/p I&D and veraflo vac application - POD 1 -NWB -knee brace at all times except for PT -PROM of knee -maintain vacs at all times -vac settings: 125mmHg, continuous, fill volume 16mL, soak time 10min, vac time 1hour. -will plan for repeat I&D and possible wound closure on friday -NPO after MN on friday -will DC nicotine patch today -DC norco and start percocet in its place Isaac Pablo Feb 10, 2017 06:51
[2017-02-10] MEDS: DOCUSATE SODIUM 50 MG/SENNA 8.6 MG TAB PO SCH ×2 (08:13→19:46)
[2017-02-10] MEDS: CALCIUM CARBONATE 1.25 GM (CA 500 MG) TAB PO SCH ×2 (08:13→19:46)
[2017-02-10] MEDS: SODIUM CHLORIDE 0.9% FLUSH 10 ML FLUSH IV FLUSH SCH ×2 (08:15→19:47)
[2017-02-10] MEDS: oxyCODONE/ACETAMINOPHEN 10 MG/325 MG TAB PO PRN ×4 (11:12→23:48)
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
[2017-02-10] MEDS: cefTRIAXone INJ 2,000 MG in SODIUM CHLORIDE 0.9% INJ 100 ML IV SCH (14:55)
[2017-02-10] MEDS ORDERED: PHARMACY ORDERED LAB ONE (16:45)
[2017-02-11] VITALS (7 sets, daily range): BP systolic 101–124; BP diastolic 59–77; PULSE 78–100; RESP 16–20; TEMP 98.3–100.5; O2SAT 92–95
[2017-02-11] MEDS: LACTATED RINGER'S 1000 ML INJ 1,000 ML IV SCH ×3 (01:20→20:02)
[2017-02-11] MEDS ORDERED: VANCOMYCIN INJ 1,250 MG in SODIUM CHLOR 0.9% 250 ML INJ 250 ML IV SCH (02:00)
[2017-02-11] MEDS: oxyCODONE/ACETAMINOPHEN 10 MG/325 MG TAB PO PRN ×5 (03:46→23:44)
[2017-02-11 05:53] LABS: HEMATOCRIT 31.5 % (39.0-51.0); MEAN CELL VOLUME 94.9 FL (80.0-100.0); MEAN CORPUSCULAR HEMOGLOBIN 32.6 PG (27.0-34.0); MEAN CORPUSCULAR HGB CONC 34.4 % (32.0-36.0); PLATELET COUNT 282 TH/MM3 (150-450); RED BLOOD COUNT 3.32 MIL/MM3 (4.50-5.90); RED CELL DISTRIBUTION WIDTH 14.4 % (11.6-17.2); REVIEW FLAG FINAL; WHITE BLOOD COUNT 8.4 TH/MM3 (4.0-11.0)
[2017-02-11 06:14] LABS: BICARBONATE 31.2 MEQ/L (21.0-32.0); POTASSIUM 3.5 MEQ/L (3.5-5.1)
--- NOTE | 2017-02-11 06:55 | PD.ORT.PN ---
Subjective Subjective Remarks POD 2 s/p I&D with veraflo vac application right knee s/p ORIF right tibial plateau doing well. reports swelling and pain. states request has helped significantly Objective Vitals Vital Signs Date Time Temp Pulse Resp B/P (MAP) Pulse Ox O2 Delivery O2 Flow Rate FiO2 02/11/17 04:46 18 02/11/17 04:00 98.9 78 20 101/59 (73) 94 02/11/17 00:00 98.3 89 20 124/69 (87) 93 02/10/17 20:06 77 02/10/17 20:00 98.4 82 20 98/59 (72) 93 02/10/17 16:00 99.0 83 17 106/60 (75) 92 02/10/17 12:45 93 02/10/17 12:00 97.9 83 17 98/57 (71) 92 02/10/17 08:05 83 02/10/17 08:00 99.0 90 18 102/63 (76) 93 I/O 02/10/17 02/10/17 02/10/17 02/11/17 02/11/17 02/11/17 07:00 15:00 23:00 07:00 15:00 23:00 Intake Total 240 ml 1070 ml 1742.5 ml Output Total 300 ml 1325 ml 800 ml Balance -60 ml -255 ml 942.5 ml Intake Oral 240 ml 720 ml 480 ml IV Total 350 ml 1262.5 ml Output Urine Total 300 ml 1150 ml 550 ml Drainage Total 175 ml 250 ml # Bowel Movements 0 Result Diagram: 02/11/1743902/11/17439 Imaging Imaging is reviewed from [facility] in the land. Shows well aligned bicondylar tibial plateau fracture with hardware intact Objective Remarks Right lower extremity: +swelling and erythema of lower leg. +vac x 2 with good seal. nvi. +knee brace Assessment & Plan Assessment and Plan 1) Right bicondylar tibial plateau fracture 2) Postsurgical infection to right knee s/p I&D and veraflo vac application - POD 2 -NWB -knee brace at all times except for PT -PROM of knee -maintain vacs at all times -vac settings: 125mmHg, continuous, fill volume 16mL, soak time 10min, vac time 1hour. -will plan for repeat I&D and possible wound closure on friday -NPO after MN on -will DC nicotine patch today -percocet for pain relief Isaac Pablo/First Jd DUMONT Feb 11, 2017 06:55
[2017-02-11] MEDS: CALCIUM CARBONATE 1.25 GM (CA 500 MG) TAB PO SCH ×2 (08:28→19:54)
[2017-02-11] MEDS: SODIUM CHLORIDE 0.9% FLUSH 10 ML FLUSH IV FLUSH SCH ×2 (08:29→20:01)
[2017-02-11] MEDS: DOCUSATE SODIUM 50 MG/SENNA 8.6 MG TAB PO SCH ×2 (08:29→19:54)
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
[2017-02-11] MEDS: SODIUM CHLOR 0.9% 1000 ML INJ 1,000 ML IV SCH ×2 (10:06→20:01)
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
[2017-02-11] MEDS: cefTRIAXone INJ 2,000 MG in SODIUM CHLORIDE 0.9% INJ 100 ML IV SCH (15:00)
[2017-02-11] MEDS ORDERED: PHARMACY ORDERED LAB ONE (17:45)
[2017-02-12] VITALS (8 sets, daily range): BP systolic 103–144; BP diastolic 52–84; PULSE 67–89; RESP 17–20; TEMP 96.3–99.8; O2SAT 87–98
[2017-02-12] MEDS: MORPHINE SULFATE 4 MG/ML INJ IV PUSH PRN (03:43)
[2017-02-12] MEDS: SODIUM CHLOR 0.9% 1000 ML INJ 1,000 ML IV SCH ×2 (05:15→16:06)
[2017-02-12] MEDS: oxyCODONE/ACETAMINOPHEN 10 MG/325 MG TAB PO PRN ×4 (06:14→22:53)
[2017-02-12] MEDS ORDERED: LACTATED RINGER'S 1000 ML IV PRN (06:45)
[2017-02-12] MEDS: LACTATED RINGER'S 1000 ML INJ 1,000 ML IV SCH ×2 (07:20→17:20)
[2017-02-12] MEDS ORDERED: VANCOMYCIN HCL 1000 MG VIAL ONE (07:55)
[2017-02-12] MEDS ORDERED: GENTAMICIN SULFATE 80 MG/2 ML VIAL ONE (07:55)
[2017-02-12] MEDS ORDERED: ceFAZolin INJ 1,000 MG VIAL IV ONE (08:00)
--- NOTE | 2017-02-12 08:43 | PD.ORT.PN ---
Subjective Subjective Remarks Resting comfortably with pain controlled (Vincent Souza Jr.) Objective Vitals Vital Signs Date Time Temp Pulse Resp B/P (MAP) Pulse Ox O2 Delivery O2 Flow Rate FiO2 02/12/17 08:00 99.1 89 17 117/67 (84) 91 02/12/17 04:23 99.8 82 18 144/84 (104) 98 02/12/17 00:11 99.4 85 20 121/71 (88) 97 02/11/17 22:26 85 02/11/17 20:15 98.9 78 18 115/69 (84) 95 02/11/17 16:00 100.5 100 18 118/77 (91) 92 02/11/17 12:00 98.6 82 16 115/67 (83) 93 I/O 02/11/17 02/11/17 02/11/17 02/12/17 02/12/17 02/12/17 06:59 14:59 22:59 06:59 14:59 22:59 Intake Total 1742.5 ml 460 ml Output Total 800 ml 1350 ml 3650 ml Balance 942.5 ml -890 ml -3650 ml Intake Oral 480 ml 360 ml IV Total 1262.5 ml 100 ml Output Urine Total 550 ml 1150 ml 3200 ml Drainage Total 250 ml 200 ml 450 ml # Bowel Movements 1 (Vincent Souza Jr.) Result Diagram: 02/11/17 0440 02/11/17 0440 Imaging Imaging is reviewed from [facility] in the [place]. Shows well aligned bicondylar tibial plateau fracture with hardware intact Objective Remarks Right lower extremity: +swelling and erythema of lower leg. +vac x 2 with good seal. nvi. +knee brace (Vincent Souza Jr.) Assessment & Plan Assessment and Plan 1) Right bicondylar tibial plateau fracture 2) Postsurgical infection to right knee s/p I&D and veraflo vac application - POD 3 -NWB -knee brace at all times except for PT -PROM of knee -Nothing by mouth Surgery this morning for irrigation debridement and planned an antibiotic bead placement (Vincent Souza Jr.) Assessment and Plan Postop day 0 Status post I&D and wound closure with antibiotic bead placement right knee. Nonweightbearing right leg Change dressing and discontinue drain on Friday Infectious disease managing IV antibiotics May be discharged home after Friday if home antibiotics and home health care arranged Follow-up clinic 2 weeks [place] (Jae Garcia MD) Vincent Souza Jr. Feb 12, 2017 08:43 Jae Garcia MD Feb 12, 2017 09:10
[2017-02-12] MEDS ORDERED: PERC10TA27 PO (09:06)
[2017-02-12] MEDS ORDERED: XARE10TA PO (09:12)
--- NOTE | 2017-02-12 09:15 | PD.OP ---
cc: Jae Jade MD Operative Report Date of Surgery: Feb 12, 2017 Preoperative Diagnosis: Open wound right medial and lateral proximal tibia, right tibia wound infection Postoperative Diagnosis: Procedure: Irrigation and debridement of right knee and proximal tibia, insertion of antibiotic beads, closure of 22 cm of open wound Surgeon: Jae Jade Office Administrator(s): SAVAGE Banda PA-C The surgical procedure was assisted by my physician food and beverage assistant. My P.A. presence was necessary throughout this case for the manipulation and positioning of the surgical extremity. My P.A. was assisting me throughout the duration of this procedure. The skill set of a physician food and beverage assistant was medically necessary to complete this procedure. During the surgical case the administrative technician was working at the back table and the physician food and beverage assistant was directly assisting me. Operation and Findings: Mario returns today operative today for treatment of right leg infection. Informed consent was confirmed and operative site was marked. He is brought to operating room. His given IV sedation and general anesthesia. Right leg was prepped with alcohol followed by Hibiclens and draped in usual sterile fashion. Timeout procedure was performed. IV antibiotics were administered. Procedure began with irrigation and debridement of the medial aspect of the tibia. Skin subcutaneous tissue and fascia were sharply debrided. Overall wound appeared to be clean. Hardware was visualized. Curettes were used to debride the edges of the tibia. Pulsatile lavage was used to copiously irrigate soft tissue and bone. Next attention was turned to the lateral wound. Skin subcutaneous tissue fascia and bone were sharply debrided. Excisional debridement was performed. Curettes were used to debride bone and soft tissue. Pulsatile lavage was used to thoroughly irrigate soft tissue bone and hardware. Next attention was turned towards antibiotic beads. 10 cc of stimulant bone cement was mixed with 2 g of vancomycin. These were made into small beads. Beads were now packed into the medial and lateral aspects of the wounds. Next attention was turned to wound closure. A drain was placed into the knee joint prior to closure. Fascia was closed with 2-0 PDS. Skin edges were now mobilized to allow for closure. Subcutaneous tissues closed with 3-0 PDS. Skin was closed with 3-0 nylon. A combination of retention sutures and vertical mattress sutures were utilized to complete closure. There was minimal tension upon completion of closure. Sterile dressings were applied. Needle and sponge counts were correct. Patient was placed into a knee malaise. He was transferred to recovery room in stable condition. Jae Jade MD Feb 12, 2017 09:15
[2017-02-12] MEDS ORDERED: SODIUM CHLORIDE 0.9% FLUSH 5 ML FLUSH IVF PRN (09:30)
[2017-02-12] MEDS ORDERED: DO NOT ADM ANY ANTICOAGULANT DRUGS PRN (09:33)
[2017-02-12] MEDS ORDERED: *morphine SULFATE 8 MG/ML PERIprocedure ONLY ONE ×2 (09:39→10:09)
[2017-02-12] MEDS ORDERED: *MEPERIDINE 25 MG INJ VIAL PERIprocedural Use ONLY ONE (09:41)
--- NOTE | 2017-02-12 09:49 | HHI.FF ---
Face to Face Verification Diagnosis: (1) Tibial plateau fracture, right (2) Septic arthritis Physical Therapy Knee: Knee fracture, Protocol: Right, Non weight bearing Canvas Knee Splint: Remove only with PT Right LE Weight Bearing: Non WB, No Strengthening, No Quad Sets Right LE Range of Motion: Passive ROM Nursing Dressing Changes: Daily dressing change, Pete wrap, 4x4s, Xeroform Additional Instructions PICC line dressing changes and care for IV Abx infusion I have seen patient Mario Oneal on 02/12/17. My clinical findings support the need for the requested home health care services because: Ltd mobility - disease progression I certify that my clinical findings support that this patient is homebound because: Post-op weakness Isaac Pablo/First Jd DUMONT Feb 12, 2017 09:49
[2017-02-12] MEDS ORDERED: Post-op Orders (for Pharmacy) MISC XX ONE (10:00)
--- NOTE | 2017-02-12 10:28 | HHI.FF ---
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 [] May leave port accessed during therapy. [] May leave peripheral site accessed for duration of therapy. [x] If patient has SOB or respiratory distress, check oxygen saturation. If less than 90% or clinical signs of respiratory distress, administer oxygen at 2 L/min. via nasal cannula and notify physician. [x] Anaphylaxis/Reaction orders: * Stop infusion. * Keep IV line open with saline flush. * Notify physician. * Monitor vital signs every 15 minutes until symptoms resolve. * Check Oxygen saturation; Oxygen at 2 L/min. via nasal cannula if less than 90% or clinical signs of respiratory distress. * Administer diphenhydramine (Benadryl) 25 mg IV STAT, (unless patient has received as pre-med). May repeat once, if necessary. * Solu-Cortef 250 mg IVP over 30-60 seconds, use 100 mg vials for each dissolution. * Epinephrine (1mg/1 ml) 0.3 mg subcutaneously or IVP now with any signs of respiratory distress. * Check with physician for new additional pre-med orders if patient is re- challenged or re-treated. [x] May remove PICC line when treatment complete, after confirming with Physician. [x] If the patient is admitted to the hospital, the ED, or transferred via [facility] , complete transfer form including medication reconciliation order sheet. Laboratory Tests Weekly Labs: CBC w/diff, Creatinine, LFT's (Hepatic function test) (Labs weekly every Friday - copy to me) Additional Information Please refer to Dr Kimmie Burger for follow-up - give her office number so he can make appointment in 2-3 weeks Daria Joe MD Feb 12, 2017 10:28
[2017-02-12] MEDS: CALCIUM CARBONATE 1.25 GM (CA 500 MG) TAB PO SCH ×2 (10:35→20:23)
[2017-02-12] MEDS: DOCUSATE SODIUM 50 MG/SENNA 8.6 MG TAB PO SCH ×2 (10:35→20:25)
--- NOTE | 2017-02-12 13:38 | RADRPT ---
EXAM DATE/TIME: 02/12/2017 13:05 [place] COMPARISON: No previous studies available for comparison. INDICATIONS : Post PICC line placement. MEDICAL HISTORY : None. SURGICAL HISTORY : Appendectomy. Hernia repair ENCOUNTER: Subsequent ACUITY: 1 day PAIN SCORE: 0/10 LOCATION: Bilateral chest FINDINGS: A single view of the chest demonstrates the lungs to be symmetrically aerated without evidence of mas s, infiltrate or effusion except for some consolidation in the medial right lower lobe atelectasis ve rsus pneumonia. Left lung is clear. Right-sided PICC line is identified with its tip overlying the me dial subclavian vein. The cardiomediastinal contours are unremarkable. Osseous structures are intac t. CONCLUSION: Small infiltrate medial right lower lobe. PICC line placed with tip overlying the very medial right s ubclavian vein. Keaton Hull MD on February 12, 2017 at 13:36 Board Certified Radiologist. This report was verified electronically.
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
[2017-02-12] MEDS ORDERED: SODIUM CHLORIDE 0.9% FLUSH 10 ML FLUSH IV FLUSH PRN (14:30)
[2017-02-12] MEDS: cefTRIAXone INJ 2,000 MG in SODIUM CHLORIDE 0.9% INJ 100 ML IV SCH (15:44)
--- NOTE | 2017-02-12 16:39 | RADRPT ---
EXAM DATE/TIME: 02/12/2017 14:07 [place] COMPARISON: No previous studies available for comparison. INDICATIONS : PICC line placement. MEDICAL HISTORY : None. SURGICAL HISTORY : Appendectomy. Hernia repair ENCOUNTER: Subsequent ACUITY: 1 day PAIN SCORE: 0/10 LOCATION: Bilateral chest FINDINGS: A single view of the chest demonstrates a right-sided PICC line in good position. There is some persi stent consolidation in the right lower lobe. Left lung is clear. The cardiomediastinal contours are unremarkable. Osseous structures are intact. CONCLUSION: Persistent consolidation right lung base. PICC line in good position. Keaton Hull MD on February 12, 2017 at 16:36 Board Certified Radiologist. This report was verified electronically.
[2017-02-12] MEDS: SODIUM CHLORIDE 0.9% FLUSH 5 ML FLUSH IVF SCH (20:29)
[2017-02-13] VITALS (8 sets, daily range): BP systolic 109–130; BP diastolic 58–81; PULSE 66–80; RESP 18–20; TEMP 97–98.1; O2SAT 95–98
[2017-02-13] MEDS: SODIUM CHLOR 0.9% 1000 ML INJ 1,000 ML IV SCH ×3 (02:06→20:12)
[2017-02-13] MEDS: oxyCODONE/ACETAMINOPHEN 10 MG/325 MG TAB PO PRN ×2 (02:41→06:16)
[2017-02-13] MEDS: LACTATED RINGER'S 1000 ML INJ 1,000 ML IV SCH ×3 (03:20→20:13)
[2017-02-13] MEDS: CALCIUM CARBONATE 1.25 GM (CA 500 MG) TAB PO SCH ×2 (08:22→20:11)
[2017-02-13] MEDS: SODIUM CHLORIDE 0.9% FLUSH 10 ML FLUSH IV FLUSH SCH (08:23)
[2017-02-13] MEDS: SODIUM CHLORIDE 0.9% FLUSH 5 ML FLUSH IVF SCH ×2 (08:23→20:10)
[2017-02-13] MEDS: DOCUSATE SODIUM 50 MG/SENNA 8.6 MG TAB PO SCH ×2 (08:24→20:11)
--- NOTE | 2017-02-13 08:43 | PD.ORT.PN ---
Subjective Subjective Remarks no issues. no CP/SOB. pain controlled Objective Vitals Vital Signs Date Time Temp Pulse Resp B/P (MAP) Pulse Ox O2 Delivery O2 Flow Rate FiO2 02/13/17 08:00 97.1 69 19 121/73 (89) 95 02/13/17 04:31 97.8 78 18 109/61 (77) 98 02/13/17 00:29 98.1 72 18 121/73 (89) 96 02/12/17 20:18 98.0 74 18 103/55 (71) 98 02/12/17 16:22 95 02/12/17 16:22 Nasal Cannula 3.00 02/12/17 16:00 96.3 67 17 103/52 (69) 89 02/12/17 12:42 97 02/12/17 12:00 96.7 83 17 112/67 (82) 87 02/12/17 10:15 97.9 81 12 142/78 (99) 94 Nasal Cannula 2 02/12/17 10:00 84 12 122/61 (81) 94 Nasal Cannula 2 02/12/17 09:45 92 18 158/77 (104) 92 Nasal Cannula 2 02/12/17 09:32 97.8 91 16 157/89 (111) 100 Simple Mask 6 I/O 02/12/17 02/12/17 02/12/17 02/13/17 02/13/17 02/13/17 07:00 15:00 23:00 07:00 15:00 23:00 Intake Total 700 ml 820 ml 760 ml 120 ml Output Total 3650 ml 25 ml 910 ml 1800 ml Balance -3650 ml 675 ml -90 ml -1040 ml 120 ml Intake Oral 720 ml 760 ml 120 ml IV Total 100 ml Other 700 ml Output Urine Total 3200 ml 900 ml 1800 ml Drainage Total 450 ml 10 ml 0 ml Estimated Blood Loss 25 ml # Bowel Movements 1 1 Result Diagram: 02/11/1743902/11/17439 Imaging Imaging is reviewed [facility] in [place]. Shows well aligned bicondylar tibial plateau fracture with hardware intact Objective Remarks Right lower extremity: +swelling and erythema of lower leg. +vac x 2 with good seal. nvi. +knee brace Assessment & Plan Assessment and Plan Postop day 1 Status post I&D and wound closure with antibiotic bead placement right knee. Nonweightbearing right leg Change dressing and discontinue drain on Friday Infectious disease managing IV antibiotics May be discharged home after Friday if home antibiotics and home health care arranged Follow-up clinic 2 weeks Layo Guzman Jr., MD Feb 13, 2017 08:43
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
[2017-02-13] MEDS: oxyCODONE/ACETAMINOPHEN 7.5 MG/325 MG TAB PO PRN ×2 (10:37→15:31)
[2017-02-13] MEDS: MORPHINE SULFATE 4 MG/ML INJ IV PUSH PRN ×2 (13:01→21:49)
[2017-02-13] MEDS: cefTRIAXone INJ 2,000 MG in SODIUM CHLORIDE 0.9% INJ 100 ML IV SCH (15:31)
[2017-02-13] MEDS: RIVAROXABAN 10 MG TAB PO SCH (20:00)
[2017-02-14] VITALS (8 sets, daily range): BP systolic 117–128; BP diastolic 63–71; PULSE 72–88; RESP 16–20; TEMP 97.9–99.5; O2SAT 94–95
[2017-02-14] MEDS: oxyCODONE/ACETAMINOPHEN 10 MG/325 MG TAB PO PRN ×5 (00:51→19:33)
[2017-02-14] MEDS: MORPHINE SULFATE 4 MG/ML INJ IV PUSH PRN ×4 (02:05→21:50)
[2017-02-14] MEDS: RIVAROXABAN 10 MG TAB PO SCH (08:38)
[2017-02-14] MEDS: CALCIUM CARBONATE 1.25 GM (CA 500 MG) TAB PO SCH ×2 (08:38→21:46)
[2017-02-14] MEDS: DOCUSATE SODIUM 50 MG/SENNA 8.6 MG TAB PO SCH ×3 (08:38→21:00)
[2017-02-14] MEDS: SODIUM CHLORIDE 0.9% FLUSH 10 ML FLUSH IV FLUSH SCH (08:39)
[2017-02-14] MEDS: SODIUM CHLORIDE 0.9% FLUSH 5 ML FLUSH IVF SCH ×2 (08:49→21:00)
[2017-02-14] MEDS: LACTATED RINGER'S 1000 ML INJ 1,000 ML IV SCH ×3 (09:20→21:49)
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
[2017-02-14] MEDS: cefTRIAXone INJ 2,000 MG in SODIUM CHLORIDE 0.9% INJ 100 ML IV SCH (14:42)
[2017-02-14] MEDS: SODIUM CHLOR 0.9% 1000 ML INJ 1,000 ML IV SCH (17:03)
[2017-02-15] VITALS: BP 117/68; PULSE 82; RESP 20; TEMP 99.6; O2SAT 94
[2017-02-15] MEDS: oxyCODONE/ACETAMINOPHEN 10 MG/325 MG TAB PO PRN ×5 (00:24→17:52)
[2017-02-15] MEDS: SODIUM CHLOR 0.9% 1000 ML INJ 1,000 ML IV SCH (03:11)
[2017-02-15] MEDS: MORPHINE SULFATE 4 MG/ML INJ IV PUSH PRN ×3 (03:11→12:56)
[2017-02-15 04:00] VITALS: BP 127/75; PULSE 91; RESP 20; TEMP 100; O2SAT 94
[2017-02-15 05:28] LABS: AUTOMATED NEUTROPHIL # 7.9 TH/MM3 (1.8-7.7); BASOPHIL # 0.1 TH/MM3 (0-0.2); BASOPHIL % 0.6 % (0.0-2.0); EOSINOPHIL # 0.4 TH/MM3 (0-0.4); EOSINOPHIL % 3.7 % (0.0-4.0); HEMATOCRIT 31.6 % (39.0-51.0); HEMO FLAGS DIFF FINAL; LYMPHOCYTE # 1.2 TH/MM3 (1.0-4.8); MEAN CELL VOLUME 93.4 FL (80.0-100.0); MEAN CORPUSCULAR HEMOGLOBIN 32.9 PG (27.0-34.0); MEAN CORPUSCULAR HGB CONC 35.3 % (32.0-36.0); MONO % 10.3 % (0.0-8.0); NEUT % 74.4 % (16.0-70.0); PLATELET COUNT 606 TH/MM3 (150-450); RED BLOOD COUNT 3.38 MIL/MM3 (4.50-5.90); RED CELL DISTRIBUTION WIDTH 14.2 % (11.6-17.2); WHITE BLOOD COUNT 10.7 TH/MM3 (4.0-11.0)
[2017-02-15 05:56] LABS: ALT (GPT) 37 U/L (12-78); ANION GAP 7 MEQ/L (5-15); AST (GOT) 30 U/L (15-37); BLOOD UREA NITROGEN 6 MG/DL (7-18); CHLORIDE 99 MEQ/L (98-107); GLOMERULAR FILTRATION RATE 150 ML/MIN (>89); MAGNESIUM 1.8 MG/DL (1.5-2.5); POTASSIUM 3.7 MEQ/L (3.5-5.1); SODIUM (NA) 136 MEQ/L (136-145)
[2017-02-15 06:05] LABS: ALKALINE PHOSPHATASE 77 U/L (45-117); FREE T4 1.12 NG/DL (0.76-1.46); TOTAL BILIRUBIN ADULT 0.2 MG/DL (0.2-1.0)
--- NOTE | 2017-02-15 07:16 | PD.ORT.PN ---
Subjective Subjective Remarks Patient resting comfortably. Reports thigh spasms. Denies chest pain or shortness of breath. Denies fevers or chills. Denies nausea or vomiting. Objective Vitals Vital Signs Date Time Temp Pulse Resp B/P (MAP) Pulse Ox O2 Delivery O2 Flow Rate FiO2 02/15/17 04:00 100.0 91 20 127/75 (92) 94 02/15/17 00:00 99.6 82 20 117/68 (84) 94 02/14/17 20:09 76 02/14/17 20:00 99.5 76 20 120/70 (87) 94 02/14/17 17:12 18 02/14/17 16:40 94 02/14/17 16:00 99.3 79 18 117/63 (81) 95 02/14/17 12:00 97.9 88 20 128/64 (85) 95 02/14/17 08:42 16 02/14/17 08:00 98.9 72 16 124/70 (88) 94 I/O 02/14/17 02/14/17 02/14/17 02/15/17 02/15/17 02/15/17 07:00 15:00 23:00 07:00 15:00 23:00 Intake Total 600 ml 820 ml 1520 ml Output Total 2100 ml 1250 ml 1666 ml Balance -1500 ml -430 ml -146 ml Intake Oral 600 ml 720 ml 720 ml IV Total 100 ml 800 ml Output Urine Total 2100 ml 1250 ml 1650 ml Stool Total 1 ml Drainage Total 15 ml # Bowel Movements 1 2 Result Diagram: 02/15/17 0500 02/15/17 0500 Imaging Imaging is reviewed from [facility] in the [facility]. Shows well aligned bicondylar tibial plateau fracture with hardware intact Objective Remarks Right lower extremity: +swelling and erythema of lower leg. nvi. +knee brace Assessment & Plan Assessment and Plan Postop day 2 Status post I&D and wound closure with antibiotic bead placement right knee. Nonweightbearing right leg Change dressing and discontinue drain on today Infectious disease managing IV antibiotics May be discharged home after Friday if home antibiotics and home health care arranged Follow-up clinic 2 weeks Kristi Bruno MD Feb 15, 2017 07:16
[2017-02-15 08:00] VITALS: BP 106/69; PULSE 81; RESP 18; TEMP 99.8; O2SAT 97
[2017-02-15] MEDS: CALCIUM CARBONATE 1.25 GM (CA 500 MG) TAB PO SCH (09:00)
[2017-02-15] MEDS: DOCUSATE SODIUM 50 MG/SENNA 8.6 MG TAB PO SCH (09:00)
[2017-02-15] MEDS: SODIUM CHLORIDE 0.9% FLUSH 10 ML FLUSH IV FLUSH SCH (09:00)
[2017-02-15] MEDS: RIVAROXABAN 10 MG TAB PO SCH (09:00)
[2017-02-15] MEDS: SODIUM CHLORIDE 0.9% FLUSH 5 ML FLUSH IVF SCH (09:00)
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
[2017-02-15 12:00] VITALS: BP 129/63; PULSE 76; RESP 17; TEMP 98.7; O2SAT 96
[2017-02-15] MEDS ORDERED: PERI PO (12:06)
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
[2017-02-15 12:20] LABS: HEMOGLOBIN A1a 0.9 %; HEMOGLOBIN A1b 1.6 %; HEMOGLOBIN Ao 84.6 %; HEMOGLOBIN LA1C 2.3 %; HEMOGLOBIN P3 4.1 %
[2017-02-15] MEDS: cefTRIAXone INJ 2,000 MG in SODIUM CHLORIDE 0.9% INJ 100 ML IV SCH (13:52)
[2017-02-15 16:00] VITALS: BP 120/59; PULSE 78; RESP 18; TEMP 97.8; O2SAT 95
== END 2017-02-15 18:21 | disposition home health service (06) | DRG 856 ==
LOC: N07B 22:00
PROVIDERS: ADMIT Hospitalist; ATTEND Hospitalist
PROC: 3E1U38X Irrigation of Joints using Irrigating Substance, Percutaneous Approach, Diagnostic (ICD-10-PCS; 2017-02-09)
PROC: 0QBG0ZZ Excision of Right Tibia, Open Approach (ICD-10-PCS; principal; 2017-02-09 08:30)
PROC: 0SBC0ZZ Excision of Right Knee Joint, Open Approach (ICD-10-PCS; 2017-02-09 08:30)
PROC: 0QBG0ZZ Excision of Right Tibia, Open Approach (ICD-10-PCS; 2017-02-12)
PROC: 3E0U029 Introduction of Other Anti-infective into Joints, Open Approach (ICD-10-PCS; 2017-02-12)
DX: T81.4XXA Infection following a procedure, initial encounter (principal); A40.0 Sepsis due to streptococcus, group A; M00.261 Other streptococcal arthritis, right knee; L03.115 Cellulitis of right lower limb; B95.0 Streptococcus, group A, as the cause of diseases classified elsewhere; J45.909 Unspecified asthma, uncomplicated; F17.210 Nicotine dependence, cigarettes, uncomplicated; F12.90 Cannabis use, unspecified, uncomplicated; M71.21 Synovial cyst of popliteal space [Baker], right knee; R59.9 Enlarged lymph nodes, unspecified; Z83.3 Family history of diabetes mellitus; Z82.49 Family history of ischemic heart disease and other diseases of the circulatory system; S82.141D Displaced bicondylar fracture of right tibia, subsequent encounter for closed fracture with routine healing
CPT/HCPCS: 36569; 71010; 76937; 80048; 80053; 80202; 83036; 83605; 83735; 84100; 84439; 84443; 85025; 85027; 85652; 86140; 86403; 87015; 87040; 87070; 87102; 87116; 87205; 87206; 94150; 94664; J0131; J0610; J0690; J0696; J1580; J1642; J2175; J2250; J2270; J2405; J2543; J3010; J3370; J7030; J7050; J7120; L1830